=== PATIENT | female | born 1975 | race Caucasian/White ===

== ENCOUNTER 2022-11-08 08:40 | Day surgery (SDC) | payer BC ==
[2022-11-08] MEDS ORDERED: EPA FISH OIL1 SGL PO (09:01)
[2022-11-08] MEDS ORDERED: LOFIBRA160 MG PO (09:01)
[2022-11-08] MEDS ORDERED: COZAAR 50MG50 MG/TAB PO (09:02)
[2022-11-08] MEDS ORDERED: TALTZ AUTO80 MG/1 ML SQ (09:02)
[2022-11-08 10:05] VITALS: BP 116/77; PULSE 72; TEMP 98
[2022-11-08 10:20] VITALS: BP 124/79; PULSE 68
[2022-11-08 10:35] VITALS: BP 126/67; PULSE 56
--- NOTE | 2022-11-08 10:40 | NUR ---
1005 RETURNS TO ROOM 9 PER CART. AWAKE, ALERT. AMBULATES TO RECLINER WITH STANDBY ASSIST. RESP CLEAR, UNLABORED. DENIES NAUSEA OR ABD PAIN. VITAL SIGNS OBTAINED. CALL LIGHT AT SIDE. IN ROOM 1016 DISCHARGE INSTRUCTIONS REVIEWED. PATIENT VERBALIZES UNDERSTANDING. COPY PROVIDED IN DISCHARGE FOLDER. 1020 TOLERATES PO WATER WITHOUT NAUSEA. REFUSES SNACK. 1035 DR ACOSTA HERE TO VISIT WITH PATIENT. 1035 DRESSES SELF
== END 2022-11-08 10:43 | disposition home or self-care (01) ==
LOC: SDCO 08:40
DX: Z12.11 Encounter for screening for malignant neoplasm of colon (principal); D12.3 Benign neoplasm of transverse colon
CPT/HCPCS: J2704; J7120